=== PATIENT | female | born 1995 | race Hispanic/Latino ===

== ENCOUNTER 2021-02-02 20:10 | Emergency (ER) | payer SELFPAY ==
[~2021-02-02] VITALS: Ht 160 cm; Wt 86.0 kg
[2021-02-02 20:10] VITALS: BP 127/72
== END 2021-02-03 00:10 | disposition left against medical advice (07) ==
LOC: M ED 20:10
DX: Z53.20 Procedure and treatment not carried out because of patient's decision for unspecified reasons (principal)

== ENCOUNTER → 2023-03-24 | Outpatient (CLI) | payer OTHER | LOC: M WHC 14:17 | PROVIDERS: ATTEND Nurse Practitioner Primary Care | DX: N64.4 Mastodynia (principal) ==

== ENCOUNTER → 2024-01-19 | Outpatient (CLI) | payer OTHER ==
[2024-01-19 13:22] LABS: HEMATOCRIT 35.2 % (36.0-47.0); HEMOGLOBIN 11.9 g/dl (12.0-15.5); MEAN CORPUSCULAR HEMOGLOBIN 30.9 pg (27.0-33.0); MEAN CORPUSCULAR HGB CONC 33.8 g/dl (32.0-36.5); MEAN CORPUSCULAR VOLUME 91.4 fl (80.0-96.0); PLATELET COUNT, AUTOMATED 244 10^3/uL (150-450); RED BLOOD COUNT 3.85 10^6/uL (4.00-5.40); WHITE BLOOD COUNT 11.4 10^3/uL (4.0-10.0)
[2024-01-19 14:41] LABS: GC DNA AMPLIFICATION NEGATIVE (NEGATIVE)
== END ==
LOC: M PLALAB 10:01
PROVIDERS: ATTEND Specialist
DX: Z34.82 Encounter for supervision of other normal pregnancy, second trimester (principal)

== ENCOUNTER → 2024-03-16 | Outpatient (REF) | payer OTHER | LOC: M SFHCWAGY 15:05 | PROVIDERS: ATTEND Nurse Practitioner Women's Health | DX: Z34.80 Encounter for supervision of other normal pregnancy, unspecified trimester (principal); Z36.85 Encounter for antenatal screening for Streptococcus B ==

== ENCOUNTER 2024-04-16 01:21 | Inpatient (IN) | payer OTHER ==
[~2024-04-16] VITALS: Ht 160 cm; Wt 102.5 kg
[2024-04-16] MEDS ORDERED: LIDOCAINE 1% MDV 20ML VIAL INFIL PRN (02:00)
[2024-04-16] MEDS ORDERED: OXYTOCIN DRIP 30 UNITS in IV 1 EA IV PRN (02:00)
[2024-04-16 02:22] LABS: HEMATOCRIT 36.8 % (36.0-47.0); HEMOGLOBIN 12.7 g/dl (12.0-15.5); MEAN CORPUSCULAR HEMOGLOBIN 30.2 pg (27.0-33.0); MEAN CORPUSCULAR HGB CONC 34.5 g/dl (32.0-36.5); MEAN CORPUSCULAR VOLUME 87.6 fl (80.0-96.0); PLATELET COUNT, AUTOMATED 216 10^3/uL (150-450); WHITE BLOOD COUNT 11.3 10^3/uL (4.0-10.0)
[2024-04-16] MEDS ORDERED: PRENTAB9 PO (02:38)
[2024-04-16] MEDS ORDERED: HOME MED LIST COMPLETE! XX SCH (02:40)
[2024-04-16] MEDS ORDERED: diphenhydrAMINE 50MG/ML VIAL IV PRN ×2 (03:10→09:00)
[2024-04-16] MEDS ORDERED: ONDANSETRON 4MG 2ML VIAL IV PRN ×3 (03:10→09:00)
[2024-04-16] MEDS ORDERED: ePHEDrine SULFATE 25 MG/5 ML(5MG/ML) SYRINGE IVP PRN (03:10)
[2024-04-16] MEDS ORDERED: NALOXONE INJ 0.4MG/1ML VIAL IV PRN ×3 (03:10→09:00)
[2024-04-16] MEDS ORDERED: EPIDURAL/PCA KEYS XX PRN (03:10)
[2024-04-16] MEDS: FENTANYL/ROPIVACAINE/NACL BAG 100 ML EPIDURAL SCH (03:23)
[2024-04-16] MEDS: LR 500 ML IV PRN (04:29)
[2024-04-16 07:29] VITALS: BP 110/50
[2024-04-16] MEDS ORDERED: ceFAZolin 2 GM/D5W 50 ML IV BAG As Ordered ONE (07:41)
[2024-04-16] MEDS ORDERED: BICITRA 30ML SOLN UDC As Ordered ONE (07:42)
[2024-04-16] MEDS ORDERED: AZITHROMYCIN INJ 500MG VIAL As Ordered ONE (07:42)
[2024-04-16] MEDS: BICITRA 30ML SOLN UDC PO ONE (07:44)
[2024-04-16] MEDS: AZITHROMYCIN INJ 500 MG, VIAL MATE ADAPTER 1 EACH in NS 250 ML IV ONE (07:44)
[2024-04-16] MEDS: ceFAZolin SOD 2 GM in IV 1 EA IV ONE (07:45)
[2024-04-16] MEDS ORDERED: MORPHINE PRES-FREE INJ 10 MG/10 ML VIAL As Ordered ONE (08:08)
[2024-04-16] MEDS ORDERED: fentaNYL 100 MCG/2 ML INJECTION As Ordered ONE (08:08)
[2024-04-16] MEDS ORDERED: OXYTOCIN 30UNITS IN 0.9% NaCl 500ML IV BAG As Ordered ONE (08:08)
[2024-04-16] MEDS ORDERED: LIDOCAINE 2% W/EPINEPHRINE 20ML VIAL **PRES FREE As Ordered ONE (08:08)
[2024-04-16] MEDS ORDERED: PHENYLephrine 500MCG 5ML (100MCG/ML) SYRINGE As Ordered ONE (08:10)
[2024-04-16 08:22] LABS: CORD GAS ABE A -5.2; CORD GAS HCO3 A 24.1 MMOL/L; CORD GAS O2 SAT A 25.5 %; CORD GAS PCO2 A 63.8 mmHg; CORD GAS PH A 7.195 UNITS; CORD GAS SBC A 18.7 MMOL/L; CORD GAS TCO2 A 26.1 MMOL/L
[2024-04-16] MEDS ORDERED: ONDANSETRON 4MG 2ML VIAL As Ordered ONE (08:23)
[2024-04-16] MEDS ORDERED: KETOROLAC 60MG 2ML VIAL As Ordered ONE (08:23)
[2024-04-16 08:24] LABS: CORD GAS ABE V -6.3; CORD GAS HCO3 V 21.9 MMOL/L; CORD GAS O2 SAT V 60.1 %; CORD GAS PCO2 V 54.3 mmHg; CORD GAS PH V 7.224 UNITS; CORD GAS PO2 V 27.1 mmHg; CORD GAS SBC V 18.5 MMOL/L; CORD GAS TCO2 V 23.6 MMOL/L
[2024-04-16] MEDS ORDERED: PERCOCET 5MG/325MG TAB PO PRN ×3 (08:40→09:00)
[2024-04-16] MEDS ORDERED: SIMETHICONE 80MG CHEW TAB PO PRN (08:40)
[2024-04-16] MEDS ORDERED: RHO(D) IMMUNE GLOBULIN/MALTOSE 500MCG(2500IU)/2.2ML VIAL (WINRHO) IM SCH (08:40)
[2024-04-16] MEDS ORDERED: OXYC1TAB23 PO (08:45)
[2024-04-16] MEDS ORDERED: IBUP80TA PO (08:45)
[2024-04-16] MEDS ORDERED: COLA100C5 PO (08:46)
[2024-04-16] MEDS ORDERED: MEPERIDINE 25 MG/ML 1ML VIAL IV PRN (09:00)
[2024-04-16] MEDS ORDERED: METOCLOPRAMIDE INJ 10MG/2ML VIAL IV PRN ×2 (09:00)
[2024-04-16] MEDS ORDERED: **NOTE PATIENT COMMENT** MISC XX SCH (09:00)
[2024-04-16] MEDS: SLF 3 ML SYR IV SCH (09:00)
[2024-04-16] MEDS: PRENATAL VITAMINS CHEWABLE TABLET PO SCH (09:00)
[2024-04-16] MEDS ORDERED: fentaNYL 100 MCG/2 ML INJECTION IV PRN (09:00)
[2024-04-16] MEDS: LR 1,000 ML IV SCH (09:08)
[2024-04-16] MEDS: OXYTOCIN DRIP 30 UNITS in IV 1 EA IV SCH (09:09)
[2024-04-16 10:05] VITALS: TEMP 100.4
[2024-04-16] MEDS ORDERED: ACETAMINOPHEN 500 MG TAB As Ordered ONE (10:11)
[2024-04-16 10:30] VITALS: BP 114/53; O2SAT 95
[2024-04-16] MEDS: ACETAMINOPHEN 500 MG TAB PO PRN (10:41)
[2024-04-16] MEDS: AMPICILLIN SOD/SULBACTAM SOD 3 GM in D5W MINI-BAG PLUS 100 ML IV SCH (11:11)
[2024-04-16 14:00] VITALS: BP 115/58; O2SAT 97
[2024-04-16] MEDS: KETOROLAC 30 MG/ML 1ML VIAL IV SCH (14:48)
[2024-04-16 18:00] VITALS: BP 111/59; O2SAT 100
[2024-04-16 22:00] VITALS: BP 116/61; O2SAT 97
[2024-04-17 02:43] VITALS: BP 108/56; O2SAT 97
[2024-04-17 06:25] VITALS: BP 96/55; O2SAT 96
[2024-04-17 06:44] LABS: MEAN CORPUSCULAR HEMOGLOBIN 30.8 pg (27.0-33.0); MEAN CORPUSCULAR HGB CONC 34.2 g/dl (32.0-36.5); MEAN CORPUSCULAR VOLUME 90.1 fl (80.0-96.0); PLATELET COUNT, AUTOMATED 186 10^3/uL (150-450); RED BLOOD COUNT 3.44 10^6/uL (4.00-5.40); WHITE BLOOD COUNT 13.2 10^3/uL (4.0-10.0)
[2024-04-17 06:45] LABS: HEMOGLOBIN 10.6 g/dl (12.0-15.5)
[2024-04-17 10:02] VITALS: BP 108/64; O2SAT 97
[2024-04-17] MEDS: IBUPROFEN 800 MG TAB PO SCH (11:29)
[2024-04-17 14:44] VITALS: BP 96/52; O2SAT 96
[2024-04-17 18:16] VITALS: BP 117/71; O2SAT 99
[2024-04-17 18:34] LABS: HEPATITIS C VIRUS ABY INDEX < 0.02 INDEX (<0.8)
[2024-04-17] MEDS: DOCUSATE SODIUM 100MG CAPSULE PO SCH (21:28)
[2024-04-17 22:00] VITALS: BP 120/64; O2SAT 98
[2024-04-18 02:00] VITALS: BP 121/67; O2SAT 98
[2024-04-18 05:58] VITALS: BP 120/71; O2SAT 98
[2024-04-18] MEDS: MEASLES,MUMPS,RUBELLA VACCINE INJ (MMR-II) SC.IMMUN ONE (07:19)
[2024-04-18 10:00] VITALS: BP 124/77; O2SAT 97
== END 2024-04-18 13:00 | disposition home or self-care (01) | DRG 773 ==
LOC: M LDO 01:21 → M LDI 01:54 → M OBS 10:22
PROVIDERS: ADMIT Specialist; ATTEND Specialist
PROC: 10D00Z1 Extraction of Products of Conception, Low, Open Approach (ICD-10-PCS; principal; 2024-04-16 08:00)
DX: O34.211 Maternal care for low transverse scar from previous cesarean delivery (principal); Z3A.40 40 weeks gestation of pregnancy; O48.0 Post-term pregnancy; O64.0XX0 Obstructed labor due to incomplete rotation of fetal head, not applicable or unspecified; Z37.0 Single live birth